=== PATIENT | female | born 1965 | race Two or more races ===

== ENCOUNTER 2020-05-07 12:49 | Inpatient (IN) | payer OTHER ==
--- NOTE | 2020-05-07 13:34 | BHS.RME ---
2019 N Coronavirus Screen - COVID-19 Screening Questions Dx of COVID-19 or had a positive test in the last 4 weeks?: No Contact with known/suspected COVID patient in last 14 days?: No Any of these symptoms or contact with someone who has?: None Traveled domestically/internationally in the last 14 days?: No Screen score: 0 Screen result: Further Evaluation Substance Use & Tx History - Substance Use History Heroin Substance amount: 2-10 bags Frequency of use: Daily Substance route: Inhalation (ex: sniffing or snorting) Date of Last Use: 05/07/20 (started age 12) Physical/Psych/Mental Status - Behavior General Behavior: Increased activity (restlessness, agitation) Eye Contact: Normal - Cooperativeness Cooperativeness: Cooperative - Thinking Thought Processes: Tight, Logical, Goal Directed - Physical Health Problems Is patient presently having any pain?: No Does patient presently have any injuries (include location): No Does patient currently have a fever: No Is patient : No COWS - Scale Resting Pulse: 1= [place] 81-100 (not in full withdrawals due to use this morning.) Sweatin= No chills or Flushing Restless Observation: 3= Extraneous Movement Pupil Size: 0= Normal to Room Light Bone or Joint Aches: 1= Mild Discomfort Runny Nose/ Eye Tearin= None GI Upset > 30mins: 2= Nausea/Diarrhea Tremor Observation: 1= Tremor [place], Not Seen Yawning Observation: 0= None Anxiety or Irritability: 0= None Goose Flesh Skin: 0=Smooth Skin COWS Score: 8
[2020-05-07 14:49] VITALS: BMI 30.2
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
[2020-05-07] MEDS ORDERED: ALBUTEROL SO4 HFA INHALER IH PRN (15:17)
[2020-05-07] MEDS ORDERED: MAGNESIUM CITRATE 300 ML BOTTLE PO PRN (15:19)
[2020-05-07] MEDS ORDERED: cloNIDine HCL 0.1 MG TABLET PO PRN (15:19)
[2020-05-07] MEDS ORDERED: MAG HYDROX/AL HYDROX/SIMETH 30 ML UNIT-DOSE CUP PO PRN (15:19)
[2020-05-07] MEDS ORDERED: METHOCARBAMOL 500 MG TABLET PO PRN (15:19)
[2020-05-07] MEDS ORDERED: MAGNESIUM HYDROX 2400MG/30ML ORAL SUSPENSION 30 ML CUP PO PRN (15:19)
[2020-05-07] MEDS ORDERED: IBUPROFEN 400 MG TABLET (FP) PO PRN (15:19)
[2020-05-07] MEDS ORDERED: MENTHOL/PHENOL 1 EACH UD MM PRN (15:19)
[2020-05-07] MEDS ORDERED: METHADONE HCL 10 MG TABLET (FOR DETOX USE ONLY) PO ONE (15:19)
[2020-05-07] MEDS ORDERED: ACETAMINOPHEN 325 MG TABLET (FP) PO PRN ×2 (15:19)
[2020-05-07] MEDS ORDERED: ONDANSETRON *ODT* 4 MG TABLET SL PRN (15:19)
[2020-05-07] MEDS ORDERED: BISMUTH SUBSALICYLATE 524 MG/30 ML UD PO PRN (15:19)
[2020-05-07] MEDS ORDERED: FLU VACCINE (FLULAVAL) PF 60 MCG/0.5 ML SYRINGE 2020-2021 IM ONE (15:49)
[2020-05-07] MEDS: hydrOXYzine PAMOATE 25 MG CAPSULE (FP) PO SCH ×2 (18:03→22:38)
[2020-05-07] MEDS: THIAMINE HCL 100 MG TABLET (FP) PO SCH (22:38)
[2020-05-07] MEDS: MELATONIN 5 MG TABLETS PO SCH (22:38)
[2020-05-08] MEDS: hydrOXYzine PAMOATE 25 MG CAPSULE (FP) PO SCH ×5 (07:09→22:16)
[2020-05-08] MEDS ORDERED: METHADONE HCL 10 MG TABLET (FOR DETOX USE ONLY) ONE (09:26)
[2020-05-08] MEDS ORDERED: METHADONE HCL 5 MG TABLET (FOR DETOX USE ONLY) ONE (09:26)
[2020-05-08 10:00] LABS: ALBUMIN 2.8 g/dl (3.4-5.0); BILIRUBIN,TOTAL 0.8 mg/dL (0.2-1); BLOOD UREA NITROGEN 5.7 mg/dL (7-18); CALCIUM 8.6 mg/dL (8.5-10.1); CREATININE 0.7 mg/dL (0.55-1.3); POTASSIUM 3.2 mmol/L (3.5-5.1); TOT PROT 6.7 g/dl (6.4-8.2)
[2020-05-08] MEDS ORDERED: METHADONE (DETOX) 20 MG, METHADONE (DETOX) 5 MG PO ONE (10:00)
[2020-05-08] MEDS: PRENATAL VITAMINS W/ FOLIC ACID TABLET (FP) PO SCH (10:05)
[2020-05-08 10:07] LABS: HEMATOCRIT 34.7 % (32.4-45.2); HEMOGLOBIN 11.9 GM/dL (10.7-15.3); MCH 28.6 pg (25.7-33.7); MCHC 34.2 g/dl (32.0-36.0); MEAN CELL VOLUME 83.8 fl (80-96); MEAN PLT VOLUME 8.5 fl (7.5-11.1); PLATELET COUNT 200 K/MM3 (134-434); RBC 4.14 M/mm3 (3.60-5.2); RDW 14.7 % (11.6-15.6); WHITE BLOOD COUNT 3.2 K/mm3 (4.0-10.0)
--- NOTE | 2020-05-08 10:26 | CONSULT ---
[facility] Psychiatric Consult - Data Date of interview: 05/08/20 Admission source: [facility] Identifying data: Patient is a 55 year old single female, mother of five, resides in a correction, unemployed, and is supported with SSI. This is patient's first admission to detox at [facility]. Patient admitted to for for opiate dependence. Substance Abuse History: - Substance Use History. Heroin. Substance amount: 2-10 bags. Frequency of use: Daily. Substance route: Inhalation (ex: sniffing or snorting). Date of Last Use: 05/07/20 (started age 12). No hx of OD. No Narcan at [facility] Medical History: HIV, Asthma Psychiatric History: Patient denies history of psychiatric hospitalizations and suicide attempt. Ms. Ron reports history of seeing one psychiatrist approximately five years ago for depression. She denies accepting medications. Patient has not seen a psychiatrist since. At present patient reports stable mood. Physical/Sexual Abuse/Trauma History: denies. Mental Status Exam - Mental Status Exam Alert and Oriented to: Time, Place, Person Cognitive Function: Good Patient Appearance: Disheveled Mood: Withdrawn Affect: Mood Congruent Patient Behavior: Cooperative Speech Pattern: Clear Voice Loudness: Moderately Soft/Quiet Thought Process: Goal Oriented Thought Disorder: Not Present Hallucinations: Denies Suicidal Ideation: Denies Homicidal Ideation: Denies Insight/Judgement: Poor Sleep: Fair Appetite: Fair Muscle strength/Tone: Normal Gait/Station: Other (Patient utilizes a rolling walker.) Psychiatric Findings - Problem List ([place] 1, 2,3) (1) Opioid dependence Status: Acute - Initial Treatment Plan Initial Treatment Plan: Psychoeducation provided. Detoxification in progress. Observation.
--- NOTE | 2020-05-08 12:50 | PN ---
BHS COWS - Scale Resting Pulse: 2= [place] [id number] Sweatin=Flushed/Facial Moisture Restless Observation: 1= Difficult to Sit Still Pupil Size: 0= Normal to Room Light Bone or Joint Aches: 2= Severe Diffuse Aches Runny Nose/ Eye Tearin= None GI Upset > 30mins: 1= Stomach Cramp Tremor Observation of Outstretched Hands: 0= None Yawning Observation: 1= 1-2x During Session Anxiety or Irritability: 1=Feels Anxious/Irritable Goose Flesh Skin: 0=Smooth Skin COWS Score: 10 BHS Progress Note (SOAP) Subjective: Pt seen and examined at bedside this morning. Pt with opioid withdrawal symptoms (increased HR, paroxysmal sweating, diffuse bone/joint aches, yawning, and anxiety). Pt with no other complaints. Objective: Last Vital Signs Temp Pulse Resp BP Pulse Ox 97.3 F L 102 H 19 102/65 98 05/08/20 09:10 05/08/20 09:10 05/08/20 09:10 05/08/20 09:10 05/08/20 09:10 Gen - AOx3; well-nourished; anxious appearing CV - tachycardia, regular rhythm, normal s1/s2 Pulm - CTAB Ext - moving all extremities equally/spontaneously; moist palms; ambulating well with walker Laboratory 05/08/20 05/08/20 05/08/20 07:50 07:50 07:50 WBC 3.2 K/mm3 L K/mm3 (4.0-10.0) RBC 4.14 M/mm3 M/mm3 (3.60-5.2) Hgb 11.9 GM/dL GM/dL (10.7-15.3) Hct 34.7 % % (32.4-45.2) MCV 83.8 fl fl (80-96) MCH 28.6 pg pg (25.7-33.7) MCHC 34.2 g/dl g/dl (32.0-36.0) RDW 14.7 % % (11.6-15.6) Plt Count 200 K/MM3 D K/MM3 (134-434) MPV 8.5 fl D fl (7.5-11.1) Sodium 140 mmol/L mmol/L (136-145) Potassium 3.2 mmol/L L mmol/L (3.5-5.1) Chloride 103 mmol/L mmol/L (98-107) Carbon Dioxide 33 mmol/L H mmol/L (21-32) Anion Gap 4 MMOL/L L MMOL/L (8-16) BUN 5.7 mg/dL L mg/dL (7-18) Creatinine 0.7 mg/dL mg/dL (0.55-1.3) Est GFR (CKD-EPI)AfAm 111.47 Est GFR (CKD-EPI)NonAf 96.18 Random Glucose 86 mg/dL mg/dL (74-106) Calcium 8.6 mg/dL mg/dL (8.5-10.1) Total Bilirubin 0.8 mg/dL mg/dL (0.2-1) AST 20 U/L U/L (15-37) ALT 19 U/L U/L (13-61) Alkaline Phosphatase 55 U/L U/L (45-117) Total Protein 6.7 g/dl g/dl (6.4-8.2) Albumin 2.8 g/dl L g/dl (3.4-5.0) Syphilis Serology Non-reactive (NONREACTIVE) 05/08/20 12:48 Assessment: Pt with opioid withdrawal symptoms. 05/08/20 12:50 Plan: Continue methadone detox protocol.
--- NOTE | 2020-05-08 13:43 | EKG ---
Test Reason : Blood Pressure : / mmHG Vent. Rate : 072 BPM Atrial Rate : 072 BPM P-R Int : 152 ms QRS Dur : 090 ms QT Int : 390 ms P-R-T Axes : 025 015 021 degrees QTc Int : 427 ms NORMAL SINUS RHYTHM NORMAL ECG NO PREVIOUS ECGS AVAILABLE Confirmed by LAZARO RUSSELL MD ([id number]) on 05/08/2020 1:42:47 PM Referred By: Confirmed By:LAZARO RUSSELL MD
[2020-05-08] MEDS: THIAMINE HCL 100 MG TABLET (FP) PO SCH (22:16)
[2020-05-08] MEDS: MELATONIN 5 MG TABLETS PO SCH (22:16)
[2020-05-09] MEDS: hydrOXYzine PAMOATE 25 MG CAPSULE (FP) PO SCH ×5 (05:50→22:25)
[2020-05-09] MEDS ORDERED: METHADONE HCL 10 MG TABLET (FOR DETOX USE ONLY) PO ONE (10:00)
[2020-05-09] MEDS: PRENATAL VITAMINS W/ FOLIC ACID TABLET (FP) PO SCH (10:18)
[2020-05-09] MEDS ORDERED: FLU VACCINE (FLULAVAL) PF 60 MCG/0.5 ML SYRINGE 2020-2021 IM ONE (12:00)
--- NOTE | 2020-05-09 13:16 | PN ---
BHS COWS - Scale Resting Pulse: 1= [place] 81-100 Sweatin= Chills/Flushing Restless Observation: 1= Difficult to Sit Still Pupil Size: 0= Normal to Room Light Bone or Joint Aches: 2= Severe Diffuse Aches Runny Nose/ Eye Tearin= None GI Upset > 30mins: 0= None Tremor Observation of Outstretched Hands: 0= None Yawning Observation: 2= >3x During Session Anxiety or Irritability: 2=Irritable/Anxious Goose Flesh Skin: 0=Smooth Skin COWS Score: 9 BHS Progress Note (SOAP) Subjective: c/o irritability, anxiety, muscle aches, and chills. Objective: 05/09/20 13:14 Vital Signs 05/09/20 05/09/20 06:37 09:09 Temperature 97.6 F 97.1 F L Pulse Rate 72 88 Respiratory 16 18 Rate Blood Pressure 99/69 102/69 O2 Sat by Pulse 97 97 Oximetry (%) Assessment: AOX3, in no acute respiratory distress. Full ROM, ambulating in the unit. Withdrawal symptoms. Plan: continue detox.
[2020-05-09] MEDS: THIAMINE HCL 100 MG TABLET (FP) PO SCH (22:25)
[2020-05-09] MEDS: MELATONIN 5 MG TABLETS PO SCH (22:25)
[2020-05-10] MEDS: hydrOXYzine PAMOATE 25 MG CAPSULE (FP) PO SCH ×5 (05:43→22:17)
[2020-05-10] MEDS ORDERED: METHADONE HCL 10 MG TABLET (FOR DETOX USE ONLY) ONE (09:31)
[2020-05-10] MEDS ORDERED: METHADONE HCL 5 MG TABLET (FOR DETOX USE ONLY) ONE (09:32)
[2020-05-10] MEDS ORDERED: METHADONE (DETOX) 10 MG, METHADONE (DETOX) 5 MG PO ONE (10:00)
[2020-05-10] MEDS: PRENATAL VITAMINS W/ FOLIC ACID TABLET (FP) PO SCH (10:11)
--- NOTE | 2020-05-10 13:14 | PN ---
BHS COWS - Scale Resting Pulse: 0= [place] 80 or Below Sweatin= Chills/Flushing Restless Observation: 0= Sits Still Pupil Size: 1= Pupils >than Normal Bone or Joint Aches: 1= Mild Discomfort Runny Nose/ Eye Tearin= None GI Upset > 30mins: 1= Stomach Cramp Tremor Observation of Outstretched Hands: 1= Tremor [place], Not Seen Yawning Observation: 0= None Anxiety or Irritability: 2=Irritable/Anxious Goose Flesh Skin: 0=Smooth Skin COWS Score: 7 BHS Progress Note (SOAP) Subjective: 55 years old female was admitted on 05/07/20 for opiate withdrawal sx management treating with methadone detox regiment ambulating with walker slow and steady doing well with methadone regiment tolerated well ate breakfast and lunch in room social with peers in day room encourage ms chandler to consider medication assisted treatment program and sweet pickle maker narcan from pharmacy Objective: 05/10/20 13:16 Vital Signs - 24 hr 05/09/20 05/09/20 05/10/20 16:50 20:32 06:22 Temperature 96.9 F L 97.3 F L 97.1 F L Pulse Rate 83 73 88 Respiratory 16 16 18 Rate Blood Pressure 105/82 122/90 124/81 O2 Sat by Pulse 99 96 Oximetry (%) 05/10/20 05/10/20 08:40 12:55 Temperature 97.1 F L 97.1 F L Pulse Rate 100 H 73 Respiratory 18 16 Rate Blood Pressure 105/69 101/61 O2 Sat by Pulse 97 99 Oximetry (%) Laboratory Tests 05/07/20 05/08/20 05/08/20 16:00 07:50 07:50 WBC 3.2 L RBC 4.14 Hgb 11.9 Hct 34.7 MCV 83.8 MCH 28.6 MCHC 34.2 RDW 14.7 Plt Count 200 D MPV 8.5 D Sodium Potassium Chloride Carbon Dioxide Anion Gap BUN Creatinine Est GFR (CKD-EPI)AfAm Est GFR (CKD-EPI)NonAf Random Glucose Calcium Total Bilirubin AST ALT Alkaline Phosphatase Total Protein Albumin Syphilis Serology Non-reactive COVID-19 (JONES) Not detected 05/08/20 07:50 WBC RBC Hgb Hct MCV MCH MCHC RDW Plt Count MPV Sodium 140 Potassium 3.2 L Chloride 103 Carbon Dioxide 33 H Anion Gap 4 L BUN 5.7 L Creatinine 0.7 Est GFR (CKD-EPI)AfAm 111.47 Est GFR (CKD-EPI)NonAf 96.18 Random Glucose 86 Calcium 8.6 Total Bilirubin 0.8 AST 20 ALT 19 Alkaline Phosphatase 55 Total Protein 6.7 Albumin 2.8 L Syphilis Serology COVID-19 (JONES) 05/10/20 13:18 K+ 3.2 K+ 40meq po x 2 repeat K+ 05/10/20 13:20 Assessment: 05/10/20 13:20 opiate withdrawal hypokalemia Plan: methadone regiment potassium 40meq po x 2 dosages
[2020-05-10] MEDS: POTASSIUM CHLORIDE ORAL LIQUID 20 MEQ/15 ML PO SCH ×2 (13:54→17:12)
[2020-05-10] MEDS: THIAMINE HCL 100 MG TABLET (FP) PO SCH (22:17)
[2020-05-10] MEDS: MELATONIN 5 MG TABLETS PO SCH (22:17)
[2020-05-11] MEDS: hydrOXYzine PAMOATE 25 MG CAPSULE (FP) PO SCH ×4 (07:06→14:52)
[2020-05-11 09:48] VITALS: TEMP 97.1
[2020-05-11] MEDS: PRENATAL VITAMINS W/ FOLIC ACID TABLET (FP) PO SCH (09:51)
--- NOTE | 2020-05-11 09:55 | DS ---
[facility] Detox Discharge Summary Admission Date: 05/07/20 Discharge Date: 05/11/20 - History Present History: Opioid Dependence Additional Comments: 55 years old female was admitted on 05/07/20 for opiate withdrawal sx management treatd with methadone detox regiment ms chandler prefers to leave the detox today to go to [facility] treatment team met with ms chandler to discuss benefit of methadone regiment completion ms chandler states that she prefers not to take last 5 mg of methadone tomorrow but terminate detox today case discussed with counselor that ms chandler agrees to go to [facility] today and not to leave [facility] ms chandler is alert oriented x 3 speech clearly coherently ambulating with walker slow and steady General Appearance: Yes: No Apparent Distress, Nourished, Appropriately Dressed, mild Tremorous HEENTM: Yes: EOMI, Normocephalic, Hearing Decreased, Other (Hoarse voice. Missing most of her teeth, bottom 4 are nearly ground off/black discoloration) Neck: Yes: Within Normal Limits, Supple Breast: Yes: Breast Exam Deferred Cardiology: Yes: Regular Rhythm, Regular Rate Abdominal: Yes: Normal Bowel Sounds, Non Tender, Soft, Protuberent Genitourinary: Yes: Other (deferred) Back: Yes: Normal Inspection Musculoskeletal: Yes: Other (bilateral knee surgical scars) Extremities: Yes: Other (skin popping scars bilateral forearms) Neurological: Yes: Alert, Normal Response Integumentary: Yes: Normal Color, Dry, Warm Pertinent Past History: time for discharge 46 minutes transferred order set from detox to rehab admission denies taking antivirus medication - Physical Exam Results Vital Signs: Vital Signs Temperature 97.1 F L 05/11/20 08:53 Pulse Rate 63 05/11/20 08:53 Respiratory Rate 18 05/11/20 08:53 Blood Pressure 96/67 05/11/20 08:53 O2 Sat by Pulse Oximetry (%) 96 05/11/20 06:27 Pertinent Admission Physical Exam Findings: opiate withdrawal Vital Signs - 24 hr 05/10/20 05/10/20 05/11/20 16:48 20:55 06:27 Temperature 96.9 F L 97.1 F L 97.6 F Pulse Rate 71 66 67 Respiratory 16 16 18 Rate Blood Pressure 105/74 112/79 110/74 O2 Sat by Pulse 100 96 Oximetry (%) 05/11/20 05/11/20 08:53 12:42 Temperature 97.1 F L 97.1 F L Pulse Rate 63 72 Respiratory 18 18 Rate Blood Pressure 96/67 103/77 O2 Sat by Pulse 95 Oximetry (%) Laboratory Tests 05/07/20 05/08/20 05/08/20 16:00 07:50 07:50 WBC 3.2 L RBC 4.14 Hgb 11.9 Hct 34.7 MCV 83.8 MCH 28.6 MCHC 34.2 RDW 14.7 Plt Count 200 D MPV 8.5 D Sodium Potassium Chloride Carbon Dioxide Anion Gap BUN Creatinine Est GFR (CKD-EPI)AfAm Est GFR (CKD-EPI)NonAf Random Glucose Calcium Total Bilirubin AST ALT Alkaline Phosphatase Total Protein Albumin Syphilis Serology Non-reactive COVID-19 (JONES) Not detected 05/08/20 05/11/20 07:50 07:20 WBC RBC Hgb Hct MCV MCH MCHC RDW Plt Count MPV Sodium 140 Potassium 3.2 L 4.6 Chloride 103 Carbon Dioxide 33 H Anion Gap 4 L BUN 5.7 L Creatinine 0.7 Est GFR (CKD-EPI)AfAm 111.47 Est GFR (CKD-EPI)NonAf 96.18 Random Glucose 86 Calcium 8.6 Total Bilirubin 0.8 AST 20 ALT 19 Alkaline Phosphatase 55 Total Protein 6.7 Albumin 2.8 L Syphilis Serology COVID-19 (JONES) lab noted - Treatment Hospital Course: Detox Protocol Followed, Detoxed Safely, Responded well, Discharged Condition Good, Rehab Referral Accepted Patient has Accepted a [facility] Referral to: [facility] - Medication Discharge Medications: Ambulatory Orders Albuterol Sulfate Inhaler - [Ventolin HFA Inhaler -] 2 inh IH Q4H PRN 05/28/12 Naloxone HCl [Narcan] 4 mg NS ASDIR PRN #1 spray 05/10/20 - Diagnosis (1) Substance induced mood disorder Current Visit: Yes Status: Suspected (2) Opioid withdrawal Current Visit: Yes Status: Acute (3) hep. c Current Visit: Yes Status: Chronic (4) Asthma Current Visit: Yes Status: Chronic (5) Human immunodeficiency virus infection Current Visit: Yes Status: Chronic - AMA Did Patient Leave Against Medical Advice: No COWS (PN) - Opiate Withdrawal Resting Pulse: 0= [place] 80 or Below Sweatin= No chills or Flushing Restless Observation: 0= Sits Still Pupil Size: 0= Normal to Room Light Bone or Joint Aches: 1= Mild Discomfort Runny Nose/ Eye Tearin= None GI Upset > 30mins: 1= Stomach Cramp Tremor Observation of Outstretched Hands: 1= Tremor [place], Not Seen Yawning Observation: 0= None Anxiety or Irritability: 1=Feels Anxious/Irritable Goose Flesh Skin: 0=Smooth Skin COWS Score: 4
[2020-05-11] MEDS ORDERED: METHADONE HCL 10 MG TABLET (FOR DETOX USE ONLY) PO ONE (10:00)
[2020-05-11 13:03] VITALS: BP 103/77; PULSE 72
[2020-05-12] MEDS ORDERED: METHADONE HCL 5 MG TABLET (FOR DETOX USE ONLY) PO ONE (06:00)
== END 2020-05-11 14:54 | disposition other institution (70) | DRG 773 ==
LOC: YASAS 12:49 → Y3N 16:15
PROVIDERS: ADMIT Allergy & Immunology; ATTEND Allergy & Immunology
PROC: HZ2ZZZZ Detoxification Services for Substance Abuse Treatment (ICD-10-PCS; principal; 2020-05-07)
DX: F11.23 Opioid dependence with withdrawal (principal); F31.9 Bipolar disorder, unspecified; F19.24 Other psychoactive substance dependence with psychoactive substance-induced mood disorder; Z21 Asymptomatic human immunodeficiency virus [HIV] infection status; J45.909 Unspecified asthma, uncomplicated; E87.6 Hypokalemia; B18.2 Chronic viral hepatitis C; L02.413 Cutaneous abscess of right upper limb; H54.511A Low vision right eye category 1, normal vision left eye; R49.0 Dysphonia; Z99.89 Dependence on other enabling machines and devices; Z56.0 Unemployment, unspecified; Z59.0 Homelessness; Z86.2 Personal history of diseases of the blood and blood-forming organs and certain disorders involving the immune mechanism
CPT/HCPCS: 36415; 80053; 84132; 85027; 86780; 93005; 93010; C9803; Q2036; U0003